=== PATIENT | male | born 1965 | race Caucasian/White ===

== ENCOUNTER 2024-12-04 19:39 | Observation (INO) | payer BC ==
[2024-12-04] MEDS ORDERED: Senokot S 8.6-50 MG TAB PO PRN (20:15)
[2024-12-04] MEDS ORDERED: Ondansetron PF 4 MG/2 ML Vial IVP PRN (20:15)
[2024-12-04] MEDS ORDERED: Melatonin 3 MG TAB PO PRN (20:15)
[2024-12-04] MEDS ORDERED: Guaifenesin DM 100-10/5 ML UDCUP PO PRN (20:15)
[2024-12-04] MEDS ORDERED: Nitroglycerin 0.4 MG TAB (25 Tab Bottle) SL PRN (20:16)
[2024-12-04 20:34] VITALS: BMI 29.6
[2024-12-04] MEDS: Rosuvastatin 10 MG TAB PO SCH (22:10)
[2024-12-05 04:33] LABS: ALT (SGPT) 69 U/L (Less than 45); AST (SGOT) 36 U/L (11-34); Albumin 4.3 g/dL (3.1-4.5); Alkaline Phosphatase 88 U/L (40-110); Bilirubin, Direct 0.2 mg/dL (0.1-0.3); Bilirubin, Total 0.5 mg/dL (0.3-1.2); CK (CPK) 55 U/L (30-200); Cardiac Risk 3.3 (Less than 4.5); Cholesterol 112 mg/dl (< 200 Desired); HDL Cholesterol 34 mg/dL (>60 Neg Risk); LDL Cholesterol, Calculated 51 mg/dL; Triglycerides 137 mg/dL (Less than 150)
[2024-12-05 04:37] LABS: Troponin I Less than 0.010 ng/mL (< 0.028)
[2024-12-05] MEDS: Aspirin 81 mg Enteric Coated Tablet PO SCH (09:27)
[2024-12-05] MEDS: Pantoprazole 40 MG DR.TAB PO SCH (09:28)
[2024-12-05] MEDS: Enoxaparin 40 MG (0.4 mL) SYRINGE SC SCH (09:28)
[2024-12-05] MEDS ORDERED: Lidocaine 1% (PF) 30 ML VIAL ONE (12:40)
[2024-12-05] MEDS ORDERED: Nitroglycerin 50 MG/250 ML BOT 250 ML ONE (12:40)
[2024-12-05] MEDS ORDERED: Heparin 10,000 UNITS/ 10 ML VIAL ONE (12:40)
[2024-12-05 17:25] VITALS: BP 113/62; TEMP 97.8
[2024-12-05] MEDS: Acetaminophen 325 MG TAB PO PRN (18:34)
[2024-12-05] MEDS ORDERED: Rosuvastatin 10 MG TAB PO SCH (21:00)
== END 2024-12-05 20:20 | disposition home or self-care (01) ==
LOC: CSHTELE 19:39
PROVIDERS: ADMIT Family Medicine; ATTEND Hospitalist
DX: I25.118 Atherosclerotic heart disease of native coronary artery with other forms of angina pectoris (principal); I25.84 Coronary atherosclerosis due to calcified coronary lesion; E78.5 Hyperlipidemia, unspecified; I10 Essential (primary) hypertension; R74.01 Elevation of levels of liver transaminase levels; E66.9 Obesity, unspecified; Z68.30 Body mass index [BMI] 30.0-30.9, adult; Z79.82 Long term (current) use of aspirin; Z79.899 Other long term (current) drug therapy
CPT/HCPCS: 36415; 80061; 80076; 82550; 84439; 84443; 84484; 93005; 93010; 93458; 96372; 99152; 99153; C1760; C1769; G0378; J1644; J1650; J2250; J3010; J7030; J7120